=== PATIENT | female | born 1960 | race African-American/Black ===

== ENCOUNTER 2022-07-16 12:59 | Inpatient (IN) | payer MEDICAID ==
[~2022-07-16] VITALS: Ht 172.7 cm; Wt 140.2 kg
[2022-07-16 14:02] LABS: Lymphocytes # (auto) 0.8 10 ^3/uL (0.4-5.4); Monocytes # (auto) 0.4 10 ^3/uL (0-1.3); Neutrophils # (auto) 4.6 10 ^3/uL (1.6-8.6); White Blood Cell 5.9 10^3/uL (4.4-10.8)
[2022-07-16 14:03] LABS: Basophils # (auto) 0.1 10 ^3/uL (0-0.2); Basophils % (auto) 0.9 % (0.0-2.0); Eosinophils # (auto) 0.1 10 ^3/uL (0-0.8); Hematocrit 34.3 % (36.0-46.0); Hemoglobin 10.8 g/dL (12.2-16.2); Lymphocytes % (auto) 13.3 % (10.0-50.0); Mean Corpuscular Hemoglobin 25.3 pg (28.0-32.0); Mean Corpuscular Hgb Conc. 31.4 g/dL (32.0-36.0); Mean Corpuscular Volume 80.4 fL (80.0-100.0); Monocytes % (auto) 6.9 % (0.0-12.0); Neutrophils % (auto) 77.9 % (37.0-80.0); Nucleated Red Blood Cells % 0.4 %; Red Blood Cells 4.26 10^6/uL (4.0-5.20); Red Cell Distribution Width 16.5 % (11.8-14.3)
[2022-07-16] MEDS ORDERED: ALBUTEROL SULF 2.5 MG/0.5ML(0.5%) NEB SOLN HHN ONE (14:15)
[2022-07-16] MEDS ORDERED: methylPREDNISolone SOD SUCC 125 MG/2 ML VL IV ONE (14:15)
[2022-07-16] MEDS ORDERED: IPRATROPIUM BROM 0.5 MG/2.5ML INH SOL HHN ONE (14:15)
[2022-07-16 14:18] LABS: Calcium 8.7 mg/dL (8.5-10.1); Potassium 3.8 mmol/L (3.5-5.1)
[2022-07-16 14:20] LABS: Bilirubin, Total 0.3 mg/dL (0.2-1.0); Total Protein 6.7 g/dL (6.4-8.2)
[2022-07-16] MEDS ORDERED: cefTRIAXone 1GM/50ML D5W 50 ML IV ONE (16:45)
[2022-07-16] MEDS ORDERED: ALBUTEROL SULF 2.5 MG/0.5ML(0.5%) NEB SOLN NEB PRN (16:45)
[2022-07-16] MEDS ORDERED: DEXTROSE (50%) 50ML SYRG IV PRN (16:45)
[2022-07-16] MEDS ORDERED: ACETAMINOPHEN 325 MG TAB PO PRN (16:45)
[2022-07-16] MEDS ORDERED: AZITHROMYCIN 500MG/ 250ML 250 ML IV ONE (16:45)
[2022-07-16] MEDS ORDERED: IOHEXOL 350 MG/ML 100ML IJ ONE (16:52)
[2022-07-16 17:23] VITALS: BP 124/40
[2022-07-16 17:49] LABS: Cholesterol 113 mg/dL (< 200)
[2022-07-16 17:53] LABS: HDL Cholesterol 52 mg/dL (40-59); LDL Cholesterol 56 mg/dL (< 100); Triglycerides 105 mg/dL (< 150)
[2022-07-16] MEDS: SODIUM CHLORIDE 0.9% 1,000 ML IV SCH (18:10)
[2022-07-16] MEDS: ACCU-CHEK COMFORT CURVE STRIP VI SCH ×2 (18:10→22:27)
[2022-07-16] MEDS: IPRATROPIUM BROM 0.5 MG/2.5ML INH SOL NEB SCH (18:20)
[2022-07-16] MEDS: ALBUTEROL SULF 2.5 MG/0.5ML(0.5%) NEB SOLN NEB SCH (18:20)
[2022-07-16] MEDS: InsuLIN REG 1unit/0.01ml Soln (100units/ml) SC SCH ×2 (18:35→22:39)
[2022-07-16] MEDS: methylPREDNISolone SOD SUCC 125 MG/2 ML VL IV SCH (22:38)
[2022-07-17] MEDS: ALBUTEROL SULF 2.5 MG/0.5ML(0.5%) NEB SOLN NEB SCH ×6 (00:23→21:47)
[2022-07-17] MEDS: IPRATROPIUM BROM 0.5 MG/2.5ML INH SOL NEB SCH ×6 (00:23→21:47)
[2022-07-17 05:19] LABS: Basophils # (auto) 0 10 ^3/uL (0-0.2); Basophils % (auto) 0.4 % (0.0-2.0); Eosinophils # (auto) 0 10 ^3/uL (0-0.8); Hematocrit 32.1 % (36.0-46.0); Hemoglobin 9.7 g/dL (12.2-16.2); Lymphocytes # (auto) 0.3 10 ^3/uL (0.4-5.4); Lymphocytes % (auto) 6.6 % (10.0-50.0); Mean Corpuscular Hemoglobin 24.6 pg (28.0-32.0); Mean Corpuscular Hgb Conc. 30.4 g/dL (32.0-36.0); Monocytes # (auto) 0.1 10 ^3/uL (0-1.3); Monocytes % (auto) 2.2 % (0.0-12.0); Neutrophils # (auto) 4.6 10 ^3/uL (1.6-8.6); Neutrophils % (auto) 90.8 % (37.0-80.0); Nucleated Red Blood Cells % 0.4 %; Red Blood Cells 3.96 10^6/uL (4.0-5.20); Red Cell Distribution Width 16.6 % (11.8-14.3)
[2022-07-17 05:43] LABS: Albumin 2.7 g/dL (3.4-5.0); Calcium 8.4 mg/dL (8.5-10.1); Potassium 5.1 mmol/L (3.5-5.1)
[2022-07-17 05:46] LABS: BUN/Creatinine Ratio 22.9; Bilirubin, Total 0.2 mg/dL (0.2-1.0); Total Protein 6.8 g/dL (6.4-8.2)
[2022-07-17] MEDS: ACCU-CHEK COMFORT CURVE STRIP VI SCH ×4 (07:39→22:20)
[2022-07-17] MEDS: InsuLIN REG 1unit/0.01ml Soln (100units/ml) SC SCH ×4 (07:40→22:34)
[2022-07-17] MEDS: cefTRIAXone 1GM/50ML D5W 50 ML IV SCH (09:46)
[2022-07-17] MEDS: ENOXAPARIN SOD 40 MG/0.4 ML SYRINGE SC SCH (09:46)
[2022-07-17] MEDS: methylPREDNISolone SOD SUCC 125 MG/2 ML VL IV SCH ×2 (09:47→22:33)
[2022-07-17 09:49] LABS: Urine Bacteria MANY /hpf (None Seen); Urine Blood Negative /uL (Negative); Urine Mucus FEW (None Seen); Urine WBC 2 /hpf (0 - 5)
[2022-07-17] MEDS: SODIUM CHLORIDE 0.9% 1,000 ML IV SCH (09:54)
[2022-07-17] MEDS: AZITHROMYCIN 500MG/ 250ML 250 ML IV SCH ×2 (10:17→13:11)
[2022-07-17 10:19] LABS: Urine Specific Gravity > 1.050 (1.001-1.035)
[2022-07-17 12:09] VITALS: BP 151/80
[2022-07-17] MEDS ORDERED: METF-372 PO (12:33)
[2022-07-17] MEDS ORDERED: HYDR25TA5 PO (12:33)
[2022-07-17] MEDS ORDERED: AMLO-496 PO (12:33)
[2022-07-17] MEDS ORDERED: SIMV10TA84 PO (12:33)
[2022-07-17 17:43] VITALS: BP 145/84
[2022-07-17 22:00] VITALS: BP 148/77
[2022-07-18] MEDS: ALBUTEROL SULF 2.5 MG/0.5ML(0.5%) NEB SOLN NEB SCH ×4 (01:51→19:53)
[2022-07-18] MEDS: IPRATROPIUM BROM 0.5 MG/2.5ML INH SOL NEB SCH ×5 (01:51→19:53)
[2022-07-18 05:00] VITALS: BP 135/77
[2022-07-18] MEDS: ACCU-CHEK COMFORT CURVE STRIP VI SCH ×3 (07:07→17:07)
[2022-07-18 07:08] LABS: Basophils # (auto) 0 10 ^3/uL (0-0.2); Eosinophils # (auto) 0 10 ^3/uL (0-0.8); Lymphocytes # (auto) 0.4 10 ^3/uL (0.4-5.4); Monocytes % (auto) 6.2 % (0.0-12.0); Neutrophils # (auto) 6.3 10 ^3/uL (1.6-8.6); White Blood Cell 7.2 10^3/uL (4.4-10.8)
[2022-07-18] MEDS: InsuLIN REG 1unit/0.01ml Soln (100units/ml) SC SCH ×3 (07:10→17:11)
[2022-07-18 07:15] LABS: Basophils % (auto) 0.3 % (0.0-2.0); Hematocrit 32.4 % (36.0-46.0); Hemoglobin 10.1 g/dL (12.2-16.2); Lymphocytes % (auto) 5.4 % (10.0-50.0); Mean Corpuscular Hemoglobin 25.3 pg (28.0-32.0); Mean Corpuscular Hgb Conc. 31.3 g/dL (32.0-36.0); Mean Corpuscular Volume 80.9 fL (80.0-100.0); Monocytes # (auto) 0.4 10 ^3/uL (0-1.3); Neutrophils % (auto) 88.1 % (37.0-80.0); Nucleated Red Blood Cells % 0.2 %; Red Cell Distribution Width 16.5 % (11.8-14.3)
[2022-07-18 07:33] LABS: Calcium 8.4 mg/dL (8.5-10.1); Magnesium 2.4 mg/dL (1.6-2.6); Potassium 4.6 mmol/L (3.5-5.1)
[2022-07-18 09:00] VITALS: BP 146/83
[2022-07-18] MEDS: cefTRIAXone 1GM/50ML D5W 50 ML IV SCH (09:01)
[2022-07-18] MEDS: ENOXAPARIN SOD 40 MG/0.4 ML SYRINGE SC SCH (09:01)
[2022-07-18] MEDS: methylPREDNISolone SOD SUCC 125 MG/2 ML VL IV SCH (09:01)
[2022-07-18] MEDS: SODIUM CHLORIDE 0.9% 1,000 ML IV SCH (09:05)
[2022-07-18] MEDS ORDERED: LOSA-39 PO (09:09)
[2022-07-18] MEDS ORDERED: ASPI1TAB37 PO (09:09)
[2022-07-18] MEDS ORDERED: INSU1INJ19 SC (09:09)
[2022-07-18] MEDS ORDERED: MONT-8 PO (09:09)
[2022-07-18] MEDS ORDERED: INSULIN LANTUS (GLARGINE) 1 /0.01ml (100units/ml) SC SCH (10:30)
[2022-07-18] MEDS ORDERED: ALBU0.084 NEB (10:31)
[2022-07-18] MEDS ORDERED: AMOX-277 PO (10:32)
[2022-07-18] MEDS ORDERED: METH4PAK PO (10:32)
[2022-07-18 13:00] VITALS: BP 150/75
[2022-07-18 17:22] VITALS: BP 148/80
== END 2022-07-18 21:05 | disposition home or self-care (01) | DRG 133 ==
LOC: ER 12:59 → OVERFLOW 16:35 → CENTRAL 07-17 12:01 → EAST 07-17 12:08 → CENTRAL 07-17 14:28
PROVIDERS: ADMIT Nurse Practitioner Family; ATTEND Internal Medicine
DX: J96.01 Acute respiratory failure with hypoxia (principal); N17.0 Acute kidney failure with tubular necrosis; E46 Unspecified protein-calorie malnutrition; J44.1 Chronic obstructive pulmonary disease with (acute) exacerbation; D64.9 Anemia, unspecified; E11.9 Type 2 diabetes mellitus without complications; E66.01 Morbid (severe) obesity due to excess calories; E78.5 Hyperlipidemia, unspecified; R79.89 Other specified abnormal findings of blood chemistry; I10 Essential (primary) hypertension; Z20.822 Contact with and (suspected) exposure to COVID-19; Z82.49 Family history of ischemic heart disease and other diseases of the circulatory system; Z87.891 Personal history of nicotine dependence; Z83.3 Family history of diabetes mellitus; Z90.710 Acquired absence of both cervix and uterus; Z68.42 Body mass index [BMI] 45.0-49.9, adult
CPT/HCPCS: 36415; 36600; 71046; 71275; 80048; 80053; 80061; 81001; 82805; 82962; 83036; 83605; 83735; 83880; 84443; 84484; 85025; 85379; 87040; 87426; 87804; 93005; 93306; 94640; 94644; 96365; 96367; 96375; G0378; J0696; J1815

== ENCOUNTER 2022-12-11 23:40 | Emergency (ER) | payer MEDICAID ==
[~2022-12-11] VITALS: Ht 172.7 cm; Wt 136.6 kg
[~2022-12-11 23:40] MED LIST: ALBU0.084 NEB; AMLO-496 PO; AMOX-277 PO; ASPI1TAB37 PO; HYDR25TA5 PO; INSU1INJ19 SC; LOSA-39 PO; METF-372 PO; METH4PAK PO; MONT-8 PO; SIMV10TA84 PO
[2022-12-12 00:17] LABS: Basophils # (auto) 0.1 10 ^3/uL (0-0.2); Basophils % (auto) 1.1 % (0.0-2.0); Eosinophils # (auto) 0.5 10 ^3/uL (0-0.8); Eosinophils % (auto) 5.1 % (0.0-7.0); Hematocrit 34.5 % (36.0-46.0); Lymphocytes # (auto) 1.4 10 ^3/uL (0.4-5.4); Lymphocytes % (auto) 15.5 % (10.0-50.0); Mean Corpuscular Hemoglobin 25.9 pg (28.0-32.0); Mean Corpuscular Hgb Conc. 31.9 g/dL (32.0-36.0); Mean Corpuscular Volume 81.2 fL (80.0-100.0); Monocytes # (auto) 0.5 10 ^3/uL (0-1.3); Neutrophils # (auto) 6.5 10 ^3/uL (1.6-8.6); Neutrophils % (auto) 72.3 % (37.0-80.0); Nucleated Red Blood Cells % 0.1 %; Red Blood Cells 4.25 10^6/uL (4.0-5.20); Red Cell Distribution Width 16.7 % (11.8-14.3); White Blood Cell 8.9 10^3/uL (4.4-10.8)
[2022-12-12 00:35] LABS: Albumin 3.2 g/dL (3.4-5.0); BUN/Creatinine Ratio 20.9 (10.0-20.0); Calcium 9.1 mg/dL (8.5-10.1); Potassium 4.6 mmol/L (3.5-5.1)
[2022-12-12 00:38] LABS: Bilirubin, Total 0.2 mg/dL (0.2-1.0); Total Protein 7.5 g/dL (6.4-8.2)
[2022-12-12] MEDS ORDERED: IPRATROPIUM BROM 0.5 MG/2.5ML INH SOL NEB ONE (02:00)
[2022-12-12] MEDS ORDERED: ALBUTEROL SULF 2.5 MG/0.5ML(0.5%) NEB SOLN NEB ONE (02:00)
[2022-12-12] MEDS ORDERED: DexAMETHasone SOD PHOS 10MG/1ML VIAL INJ IM ONE (02:00)
[2022-12-12] MEDS ORDERED: ALBUTEROL SULF 2.5 MG/0.5ML(0.5%) NEB SOLN ONE (02:51)
[2022-12-12] MEDS ORDERED: IPRATROPIUM BROM 0.5 MG/2.5ML INH SOL ONE (02:51)
[2022-12-12 04:28] VITALS: BP 146/93
[2022-12-12] MEDS ORDERED: AZIT250T9 PO (07:10)
[2022-12-12] MEDS ORDERED: PRED20TA2 PO (07:10)
== END 2022-12-12 07:21 | disposition home or self-care (01) ==
LOC: ER 23:40
DX: J44.1 Chronic obstructive pulmonary disease with (acute) exacerbation (principal); E11.9 Type 2 diabetes mellitus without complications; E78.5 Hyperlipidemia, unspecified; I10 Essential (primary) hypertension; Z90.710 Acquired absence of both cervix and uterus; Z87.891 Personal history of nicotine dependence
CPT/HCPCS: 36415; 71046; 80053; 84484; 85025; 93005; 96372; 99285; J1100; J7644